=== PATIENT | female | born 2000 | race Caucasian/White ===

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

== ENCOUNTER 2022-05-13 21:02 | Emergency (ER) | payer OTHER ==
[~2022-05-13] VITALS: Ht 170.1 cm; Wt 143.3 kg
[2022-05-13] MEDS ORDERED: AMOXICILLIN875 MG PO (21:37)
== END 2022-05-13 21:41 | disposition home or self-care (01) ==
LOC: ED 21:02
DX: J02.9 Acute pharyngitis, unspecified (principal); Z20.822 Contact with and (suspected) exposure to COVID-19; H66.91 Otitis media, unspecified, right ear; Z90.89 Acquired absence of other organs

== ENCOUNTER 2023-10-03 13:37 | Emergency (ER) | payer OTHER ==
[~2023-10-03 13:37] MED LIST changes: +AMOXICILLIN875 MG PO
== END 2023-10-03 13:58 | disposition home or self-care (01) ==
LOC: ED 13:37
DX: H93.8X3 Other specified disorders of ear, bilateral (principal); J45.909 Unspecified asthma, uncomplicated; Z98.890 Other specified postprocedural states

== ENCOUNTER 2023-12-12 03:19 | Emergency (ER) | payer OTHER ==
[~2023-12-12] VITALS: Ht 170.1 cm; Wt 145.1 kg
[2023-12-12] MEDS ORDERED: Amoxicillin/Clavulanate Pota 875 MG TAB PO ONE (03:30)
[2023-12-12] MEDS ORDERED: AMOX-CLAV 875-1 EACH PO (03:33)
== END 2023-12-12 03:38 | disposition home or self-care (01) ==
LOC: ED 03:19
DX: H66.92 Otitis media, unspecified, left ear (principal); Z79.899 Other long term (current) drug therapy; Z79.2 Long term (current) use of antibiotics

== ENCOUNTER 2024-02-11 10:38 | Emergency (ER) | payer OTHER ==
[~2024-02-11] VITALS: Ht 170.1 cm; Wt 113.4 kg
[~2024-02-11 10:38] MED LIST changes: +AMOX-CLAV 875-1 EACH PO
[2024-02-11] MEDS ORDERED: SODIUM CHLORIDE 0.9% 1,000 ML IV ONE (11:15)
[2024-02-11] MEDS ORDERED: FAMOTIDINE 50 ML IV ONE (11:15)
[2024-02-11] MEDS ORDERED: Pantoprazole Sodium 40 MG VIAL IV ONE (11:15)
[2024-02-11 11:27] LABS: BASO % 0.4 % (0.0-1.0); EOS # 0.2 10*3/uL (0.0-0.4); EOS % 1.8 % (1.0-4.0); HEMATOCRIT 44.4 % (37.0-47.0); LYMPH # 2.8 10*3/uL (1.3-4.4); LYMPH % 34.1 % (27.0-41.0); MEAN CELL VOLUME 87.2 fl (81.0-99.0); MEAN CORPUSCULAR HGB 27.9 pg (27.0-31.0); MEAN PLATELET VOLUME 10.4 fl (9.6-12.3); MONO # 0.5 10*3/uL (0.1-1.0); MONO % 6.1 % (3.0-9.0); NEUT # 4.8 10*3/uL (2.3-7.9); NEUT % 57.4 % (47.0-73.0); PLATELET COUNT AUTOMATED 211 10*3/uL (130-400); RED BLOOD COUNT 5.09 10*6/uL (4.10-5.10); RED CELL DISTRI WIDTH 13.6 % (0-14.5); WHITE BLOOD COUNT 8.3 10*3/uL (4.8-10.8)
[2024-02-11 11:29] LABS: BILIRUBIN Negative (Negative); BLOOD Negative (Negative); CLARITY Cloudy (Clear); COLOR Yellow (Yellow); GLUCOSE Negative (Negative); KETONE Negative (Negative); LEUKO ESTERASE 1+ (Negative); NITRITE Negative (Negative); PH 7.5 (4.5-8.0)
[2024-02-11 11:35] LABS: BACTERIA 2+; EPITHELIAL CELLS 21-30; MUCOUS 2+
[2024-02-11 11:47] LABS: CHLORIDE 108 mmol/L (98-107); LIPASE 25 U/L (12-53); POTASSIUM 3.5 mmol/L (3.4-5.1)
[2024-02-11] MEDS ORDERED: CIPRO500 MG PO (11:53)
[2024-02-11] MEDS ORDERED: PEPCID20 MG PO (11:53)
[2024-02-11 11:56] LABS: BUN < 5 mg/dl (9-23)
== END 2024-02-11 12:46 | disposition home or self-care (01) ==
LOC: ED 10:38
PROVIDERS: Emergency Medicine
DX: K29.70 Gastritis, unspecified, without bleeding (principal); N39.0 Urinary tract infection, site not specified; R19.7 Diarrhea, unspecified; J45.909 Unspecified asthma, uncomplicated; F17.290 Nicotine dependence, other tobacco product, uncomplicated; Z88.8 Allergy status to other drugs, medicaments and biological substances; Z98.890 Other specified postprocedural states